=== PATIENT | female | born 1970 | race Caucasian/White ===

== ENCOUNTER 2018-08-26 21:40 | Emergency (ER) | payer OTHER ==
[~2018-08-26] VITALS: Ht 162.6 cm; Wt 89.9 kg
[2018-08-26 21:49] VITALS: Ht 162.6 cm; Wt 89.9 kg
[2018-08-27] MEDS ORDERED: KETOROLAC 15 MG INJ IV STA (02:11)
[2018-08-27] MEDS ORDERED: SOD CHLORIDE 0.9% 1,000 ML IV STA (02:11)
--- NOTE | 2018-08-27 04:27 | ERD ---
ER Documentation Chief Complaint Chief Complaint AP RADIATING TO LEGS X'S 1 WEEK HPI 47-year-old female presents to the emergency room with abdominal pain. The patient describes approximately 1 week of symptoms of diffuse abdominal pain that generally starts in the suprapubic region with associated dysuria and urgency. However the patient also describes the abdominal pain radiates to her back up into the upper abdomen. Occasionally radiating to the bilateral legs. She denies any fevers or chills, no nausea or vomiting. No weight loss. No vaginal bleeding. Symptoms are moderate at this time. ROS All systems reviewed and are negative except as per history of present illness. Medications Home Meds Active Scripts Dicyclomine HCl (Dicyclomine HCl) 10 Mg Capsule, 10 MG PO TID PRN for ABDOMINAL CRAMPING, #20 CAP Prov:PHILIP GREEN MD 08/27/18 Reported Medications Benazepril Hcl* (Benazepril Hcl*) 10 Mg Tablet, 10 MG PO DAILY, #30 TAB 08/27/18 Metformin Hcl* (Metformin Hcl*) 1,000 Mg Tablet, 1000 MG PO WITH BREAKFAST DINNE, #30 TAB 08/27/18 Omeprazole* (Omeprazole*) 40 Mg Capsule.dr, 40 MG PO DAILY, #30 CAP 08/27/18 Allergies Allergies: Coded Allergies: No Known Drug Allergies (Unverified Allergy, Unknown, 08/27/18) PMhx/Soc History of Surgery: Yes (GALLBLADDER REMOVAL) Anesthesia Reaction: No Hx Neurological Disorder: No Hx Respiratory Disorders: No Hx Cardiac Disorders: Yes (HIGH CHOLESTEROL) Hx Psychiatric Problems: No Hx Miscellaneous Medical Probl: No Hx Alcohol Use: No Hx Substance Use: No Hx Tobacco Use: No Smoking Status: Never smoker FmHx Family History: No diabetes Physical Exam Vitals Vital Signs Date Temp Pulse Resp B/P (MAP) Pulse Ox O2 O2 Flow FiO2 Time Delivery Rate 08/27/18 73 20 122/65 99 Room Air 06:00 (84) 08/27/18 66 17 135/74 99 Room Air 04:00 (94) 08/27/18 97.9 70 14 142/91 99 Room Air 01:53 (108) 08/26/18 98.1 85 18 177/87 99 21:49 (117) Physical Exam General: Well developed, well nourished, no acute distress Head: Normocephalic, atraumatic. Eyes: Pupils equally reactive, EOM intact ENT: Moist mucous membranes Neck: Supple, no lymphadenopathy Respiratory: Lungs clear bilaterally, no distress Cardiovascular: RRR, no murmurs, rubs, or gallops Abdominal: Soft, reproducible suprapubic abdominal tenderness without rebound or guarding, negative Dover sign, no tenderness to McBurney's point : Deferred MSK: No edema, no unilateral swelling, 5/5 strength Neurologic: Alert and oriented, moving all extremities, normal speech, no focal weakness, no cerebellar signs Skin: No rash Psych: Normal mood Result Diagram: 08/27/1820608/27/18 020 Results 24 hrs Laboratory Tests Test 08/27/18 02:07 White Blood Count 6.2 10^3/ul Red Blood Count 4.69 10^6/ul Hemoglobin 14.0 g/dl Hematocrit 41.5 % Mean Corpuscular Volume 88.5 fl Mean Corpuscular Hemoglobin 29.9 pg Mean Corpuscular Hemoglobin Concent 33.7 g/dl Red Cell Distribution Width 12.1 % Platelet Count 210 10^3/UL Mean Platelet Volume 10.4 fl Immature Granulocytes % 0.300 % Neutrophils % 54.3 % Lymphocytes % 34.7 % Monocytes % 8.6 % Eosinophils % 1.8 % Basophils % 0.3 % Nucleated Red Blood Cells % 0.0 /100WBC Immature Granulocytes # 0.020 10^3/ul Neutrophils # 3.3 10^3/ul Lymphocytes # 2.1 10^3/ul Monocytes # 0.5 10^3/ul Eosinophils # 0.1 10^3/ul Basophils # 0.0 10^3/ul Nucleated Red Blood Cells # 0.0 10^3/ul Urine Color YELLOW Urine Clarity SLIGHTLY CLOUDY Urine pH 6.0 Urine Specific [place] 1.039 Urine Ketones TRACE mg/dL Urine Nitrite NEGATIVE mg/dL Urine Bilirubin NEGATIVE mg/dL Urine Urobilinogen NEGATIVE mg/dL Urine Leukocyte Esterase NEGATIVE Aldo/ul Urine Microscopic RBC 4 /HPF Urine Microscopic WBC 4 /HPF Urine Squamous Epithelial Cells FEW /HPF Urine Yeast (Budding) MANY /HPF Urine Hemoglobin NEGATIVE mg/dL Urine Glucose 3+ mg/dL Urine Total Protein NEGATIVE mg/dl Urine Test NEGATIVE Sodium Level 138 mmol/L Potassium Level 4.3 mmol/L Chloride Level 101 mmol/L Carbon Dioxide Level 25 mmol/L Anion Gap 12 Blood Urea Nitrogen 10 mg/dl Creatinine 0.40 mg/dl Est Glomerular Filtrat Rate mL/min > 60 mL/min Glucose Level 326 mg/dl Calcium Level 10.1 mg/dl Total Bilirubin 0.4 mg/dl Direct Bilirubin 0.00 mg/dl Indirect Bilirubin 0.4 mg/dl Aspartate Amino Transf (AST/SGOT) 27 IU/L Alanine Aminotransferase (ALT/SGPT) 37 IU/L Alkaline Phosphatase 114 IU/L Total Protein 7.9 g/dl Albumin 4.4 g/dl Globulin 3.50 g/dl Albumin/Globulin Ratio 1.25 Lipase 129 U/L Current Medications Medications Dose Sig/Camille Start Time Status Last (Trade) Ordered Route PRN Stop Time Admin Dose Reason Admin Sodium 1,000 ml @ Q1H STAT 08/27/18 DC 08/27/18 Chloride 1,000 mls/hr IV 02:11 02:23 08/27/18 03:10 Ketorolac 15 mg ONCE STAT 08/27/18 DC 08/27/18 Tromethamine IV 02:11 02:32 (Toradol) 08/27/18 02:12 Procedures/MDM EKG, MONITORS, & DIAGNOSTIC IMAGING: CT abdomen pelvis: IMPRESSION: 1. No acute process in the imaged abdomen or pelvis. 2. Mild hepatic steatosis. 3. Status post cholecystectomy. 4. Mild diverticulosis of the large bowel. No associated inflammatory changes. LAB INTERPRETATION: I reviewed the laboratory testing and it shows no evidence of acute process MEDICAL DECISION MAKING: Patient has signs and symptoms that are possibly consistent with acute cystitis. The patient is having reproducible suprapubic abdominal pain. Low clinical concern for alternative acute intra-abdominal process such as diverticulitis or appendicitis. However the patient's urinalysis is not convincing for urinary tract infection. This prompt CT imaging of the abdomen pelvis to rule out alternative process. ER COURSE: * Patient treated with IV fluids and pain control medication * Hyperglycemia noted but no evidence of diabetic ketoacidosis. The patient is not insulin diabetic. No indication for insulin infusion. * The patient's CAT scan is unremarkable. At this point unclear etiology as to the patient's abdominal pain but no serious etiology exist. At this point I feel she can be safely discharged home. Her exam is not consistent with ovarian cyst or torsion. Pelvic ultrasound does not seem appropriate at this time. Close primary care follow-up would certainly be advised. * Repeat abdominal exam is benign. The patient is asymptomatic. CONSULTATION: None DISPOSITION PLAN: The patient does not have an identifiable emergent medical condition that warrants inpatient hospitalization at this time. The patient is deemed safe for discharge with outpatient follow-up. We discussed follow up with the patient's primary care doctor within 24 to 48 hours as needed. We also discussed return to the emergency room for worsening symptoms or worsening condition. Outpatient referral: None required Discharge Medications: Bentyl Departure Diagnosis: Primary Impression: Generalized abdominal pain Additional Impression: Hyperglycemia Condition: Stable PHILIP GREEN MD Aug 27, 2018 04:27
[2018-08-27] MEDS ORDERED: OMEP40CA6 PO (04:42)
[2018-08-27] MEDS ORDERED: BENA10TA4 PO (04:42)
[2018-08-27] MEDS ORDERED: METF100010 PO (04:42)
[2018-08-27] MEDS ORDERED: DICY10CA40 PO (06:16)
[2018-08-27 07:12] VITALS: BP 122/76; PULSE 74; RESP 20
== END 2018-08-27 07:13 | disposition home or self-care (01) ==
LOC: E/R 21:40
DX: R10.84 Generalized abdominal pain (principal); R73.9 Hyperglycemia, unspecified; Z79.84 Long term (current) use of oral hypoglycemic drugs
CPT/HCPCS: 36415; 74176; 80053; 81001; 83690; 84703; 85025; 96374; J1885; J7030; Z7502; 81003